=== PATIENT | male | born 1955 | race Caucasian/White ===

== ENCOUNTER 2020-04-07 13:13 | Outpatient (CLI) | payer OTHER | END 2020-04-07 13:14 | disposition home or self-care (01) | LOC: COV 13:13 | PROVIDERS: ATTEND Family Medicine | DX: Z20.828 Contact with and (suspected) exposure to other viral communicable diseases (principal) ==

== ENCOUNTER 2020-06-01 12:24 | Outpatient (CLI) | payer OTHER ==
--- NOTE | 2020-06-01 16:29 | CARDIAC PROCEDURE NOTE ---
DATE OF SERVICE: 06/01/2020 Physician: Tanya Cates MD, [facility] INDICATION: Chest tightness. CARDIAC RISK FACTORS: Male gender, hypertension, hyperlipidemia, family history of early heart disease. DESCRIPTION OF PROCEDURE: After signing informed consent, the patient underwent a Noe-protocol treadmill stress test with nuclear myocardial perfusion imaging. RESTING HEART RATE: 75. PEAK HEART RATE: 146 (92% predicted maximum heart rate for age). RESTING BLOOD PRESSURE: 143/90. PEAK BLOOD PRESSURE: 211/78. The patient exercised for 5 minutes and 7 seconds on a Noe-protocol treadmill stress test. He achieved a peak heart rate of 146 (92% PMHR) and 7.05 METs. The patient had [id number] shortness of breath with exercise, oxygen saturation was 97-99% on room air throughout the test. He described "mild chest tightness at peak." He rated his perceived exertion at 17/20 at peak on the Rah scale. His shortness of breath and "chest tightness" resolved after 5 minutes of recovery. RESTING EKG: Normal sinus rhythm, early repolarization, RSR' in V1, early R/S transition, vertical QRS axis. These findings suggest Cor Pulmonale. EKG AT 1.5 MINUTES: Showed [address] depressions in leads V2 and V3 and new flattening of T-waves in leads II, III and aVF, new inverted T waves in leads V2 and V3. EKG AT PEAK: More rightward axis deviation, [address] depressions in V2 and V3, flat T-waves in leads II, III, V4 and V6, and new T-wave inversions in V2 and V3. These changes returned toward baseline at 5 minutes of recovery. SUMMARY: 1. Abnormal resting EKG suggesting Cor Pulmonale. 2. Dvcm-ab-tqpd exercise tolerance. 3. Abnormal EKG changes develop: ST depressions and T-wave changes that suggest cardiac ischemia or are from Cor Pulmonale. 4. Nuclear images were reported separately and showed: normal tracer uptake and no transient ischemic LV dilation, no evidence of ischemia or infarction. IMPRESSION: 1. Abnormal stress test suggesting Cor Pulmonale. 2. Nuclear images showed no coronary ischemia, at a good level of stress achieved. RECOMMENDATIONS: 1. Obtain an Echo to evaluate the right ventricle and PA pressure. 2. Light activity, aggressive risk factor management and consider referral to [facility]. Consider referral to Cardiology for further evaluation 3. Start 1 baby aspirin daily. cc: Jim Cohen MD TD: 06/01/2020 16:17 MTDD
--- NOTE | 2020-06-02 10:52 | Nuclear Medicine Report ---
PROCEDURE: Rest and exercise myocardial perfusion SPECT with gated imaging and ejection fraction INDICATIONS: CHEST TIGHTNESS RADIOPHARMACEUTICAL: 16.9 mCi Tc-99m Myoview IV at rest and 49.8 mCi Tc-99m Myoview IV at peak exerc ise. [id number] was performed. TECHNIQUE: Radiopharmaceutical was injected at peak stress test, and also at rest. SPECT images wer e obtained. SPECT myocardial perfusion images were displayed in short axis, horizontal long axis, an d vertical long axis views. Gated images were reviewed using Auto[employer] software. COMPARISON: None available. FINDINGS: Raw data: There is good myocardial labeling by radiotracer. No significant motion artifacts. Lung- to-heart ratio is 0.34 (normal is less than 0.38 for tetrafosmin tracer). Left ventricle function: Gated images demonstrate normal left ventricle wall thickening. No segment al wall motion abnormality. No transient ischemic dilation; TID is 0.76 (normal less than 1.3). The left ventricle resting end-diastolic volume is normal. Left ventricle stress ejection fraction is > 70%; normal values are above 45%. Myocardial perfusion: There is normal distribution of activity in the left and right ventricular duane cardium. No fixed or reversible perfusion defects. IMPRESSION: 1. Normal myocardial perfusion images. No perfusion defect to suggest myocardial ischemia or infarct. 2. Normal left ventricular volume and systolic function. 3. Please correlate with stress EKG report. PQRS ATTESTATIONS: Measure 322 - Is this imaging test primarily performed on a low-risk surgery patient for preoperative evaluation within 30 days preceding their low-risk non-cardiac surgery? Low-risk surgery is defined as cardiac or myocardial infarction less than 1%, including (but not limited to) endoscopic pr ocedures, superficial procedures, cataract surgery, and excisional breast surgery: Answer: No Measure 323 - Is this imaging test performed primarily for the monitoring of an asymptomatic patient who had percutaneous coronary intervention on the visit date or within 2 years of the visit date? An swer: No Measure 324 - Is this imaging test performed primarily for the initial detection and risk assessment on an asymptomatic, low coronary heart disease patient? Low CHD risk definition = clinicians should consider the maximum number of available patient factors used to estimate risk based on Meacham (A TP III criteria), typically age, gender, diabetes, smoking status, and use of blood pressure medicati on, and integrate age appropriate estimates for missing elements, such as LDL or standard blood press ure. Answer: No Reviewed by: Megan Grullon MD on 06/02/2020 10:51 AM PST Approved by: Megan Grullon MD on 06/02/2020 10:51 AM PST Station ID: [id number]
== END 2020-06-01 12:25 | disposition home or self-care (01) ==
LOC: DI 12:24
PROVIDERS: ATTEND Family Medicine
DX: R07.89 Other chest pain (principal); R94.31 Abnormal electrocardiogram [ECG] [EKG]; I27.81 Cor pulmonale (chronic)
CPT/HCPCS: 78452; 93017; A9500